=== PATIENT | male | born 1970 | race Two or more races ===

== ENCOUNTER 2019-01-10 12:24 | Emergency (ER) | payer OTHER ==
[~2019-01-10] VITALS: Ht 177.8 cm; Wt 83.9 kg
[~2019-01-10 12:24] MED LIST: NABUMETONE500 MG PO; PERCOCET 5/3251 TAB PO
== END 2019-01-10 15:00 | disposition home or self-care (01) ==
LOC: ER 12:24
DX: M10.072 Idiopathic gout, left ankle and foot (principal); M79.672 Pain in left foot

== ENCOUNTER 2019-10-24 23:18 | Emergency (ER) | payer OTHER ==
[~2019-10-24] VITALS: Ht 177.8 cm; Wt 83.9 kg
[2019-10-25] MEDS ORDERED: VISTARIL50 MG PO (00:41)
== END 2019-10-25 01:14 | disposition home or self-care (01) ==
LOC: ER 23:18
DX: R07.89 Other chest pain (principal); F43.22 Adjustment disorder with anxiety; F06.4 Anxiety disorder due to known physiological condition